=== PATIENT | male | born 1990 | race Caucasian/White ===

== ENCOUNTER 2016-11-17 19:41 | Emergency (ER) | payer OTHER ==
[~2016-11-17] VITALS: Ht 177.8 cm; Wt 63.5 kg
[2016-11-17] MEDS ORDERED: LIDOCAINE WITH 8.4% SOD BICARB 3 ML DISP.SYRIN. IJ ONE (19:45)
[2016-11-17 19:46] VITALS: BP 115/64
--- NOTE | 2016-11-17 19:49 | ED.ADGEN ---
Adult General Chief Complaint Chief Complaint Right arm laceration [facility] HPI Patient is a 26 year old male who presents with right foot pain and right forearm laceration. He states he got upset after drinking and kicked and punched the window of his truck. He presents with right foot pain with a shoe on and addition to a laceration of his right forearm. He states his tetanus shot was updated within the last 5 years. He denies any other injuries. Review of Systems Review of Systems Constitutional: Denies fever or chills [] Eyes: Denies change in visual acuity, redness, or eye pain [] HENT: Denies nasal congestion or sore throat [] Respiratory: Denies cough or shortness of breath [] Cardiovascular: No additional information not addressed in HPI [] GI: Denies abdominal pain, nausea, vomiting, bloody stools or diarrhea [] : Denies dysuria or hematuria [] Musculoskeletal: Denies back pain, positive for right foot pain Integument: Denies rash or skin lesions, positive for laceration of the right forearm Neurologic: Denies headache, focal weakness or sensory changes [] Endocrine: Denies polyuria or polydipsia [] Current Medications Current Medications Current Medications Medications (Trade) Dose Ordered Sig/Halle Start Time Stop Time Status Last Admin Dose Admin Lidocaine/Sodium Bicarbonate (Buffered Lidocaine 1%) 3 ml 1X ONCE 11/17/16 19:45 11/17/16 20:01 DC Allergies Allergies Allergies Coded Allergies Type Severity Reaction Last Updated Verified No Known Drug Allergies 11/17/16 No Physical Exam Physical Exam Constitutional: Well developed, well nourished, no acute distress, non-toxic appearance. [] HENT: Normocephalic, atraumatic, bilateral external ears normal, oropharynx moist, no oral exudates, nose normal. [] Eyes: PERRLA, EOMI, conjunctiva normal, no discharge. [] Neck: Normal range of motion, no tenderness, supple, no stridor. [] Cardiovascular:Heart rate regular rhythm, no murmur [] Lungs & Thorax: Bilateral breath sounds clear to auscultation [] Abdomen: Bowel sounds normal, soft, no tenderness, no masses, no pulsatile masses. [] Skin: Warm, dry, no erythema, no rash, 6 cm laceration of the right anterior forearm Back: No tenderness, no CVA tenderness. [] Extremities: Mild tender palpation of the medial aspect of the right foot, no obvious deformity or ecchymosis noted, no cyanosis, no clubbing, ROM intact, no edema. [] Neurologic: Alert and oriented X 3, normal motor function, normal sensory function, no focal deficits noted. [] Psychologic: Affect normal, judgement normal, mood normal. [] Current Patient Data Vital Signs Vital Signs Date Time Temp Pulse Resp B/P (MAP) Pulse Ox O2 Delivery O2 Flow Rate FiO2 11/17/16 19:46 98.2 108 20 94 Room Air EKG EKG Reviews of the right foot did not show any bony abnormalities, malalignments, fractures, foreign bodies, as interpreted by me. Radiology/Procedures Radiology/Procedures 3 views of the right foot did not show any bony abnormalities, foreign bodies, fractures, soft tissue abnormalities, as interpreted by me. Course & Med Decision Making Course & Med Decision Making Pertinent Labs and Imaging studies reviewed. (See chart for details) X-rays the right foot didn't show any abnormalities. His wound was cleaned and Dermabond together. His tetanus is up-to-date he states he's had it within the last 5 years. Return precautions given his real bowl to the plan and being discharged in stable condition. Final Impression Final Impression Right arm laceration Right foot contusion Problems: Dragon Disclaimer Dragon Disclaimer This electronic medical record was generated, in whole or in part, using a voice recognition dictation system. Laceration Repair Lac Repair Indication: Laceration of right forearm Procedure: The patient was placed in the appropriate position and anesthesia around the right forearm lack did not require any anesthesia. The area was then cleaned with copious water. The laceration was and Dermabond. Total repaired wound length: 6 cm. The patient tolerated the procedure well. Complications: No complications noted. LEIGH ANDERSON MD Nov 17, 2016 19:49
--- NOTE | 2016-11-18 07:50 | RAD ---
Right foot, 3 views, 11/17/2016: History: Foot pain, injury No acute fracture or dislocation is identified. There is mild subcutaneous edema. IMPRESSION: No acute bony abnormality is detected.
== END 2016-11-17 20:33 | disposition home or self-care (01) ==
LOC: ER 19:41
DX: S51.811A Laceration without foreign body of right forearm, initial encounter (principal); S90.31XA Contusion of right foot, initial encounter; W22.8XXA Striking against or struck by other objects, initial encounter; Y93.89 Activity, other specified; Y99.8 Other external cause status; Y92.89 Other specified places as the place of occurrence of the external cause
CPT/HCPCS: 12002; 73630; 99284-25

== ENCOUNTER 2019-11-19 14:57 | Emergency (ER) | payer OTHER ==
[~2019-11-19] VITALS: Ht 175.3 cm; Wt 68.0 kg
[2019-11-19 15:09] VITALS: BP 106/73
--- NOTE | 2019-11-19 15:25 | RAD ---
HAND RIGHT 3V History: Pain. Reason: punched a wall / Spl. Instructions: / History: Technique: 3 views right hand. Comparison: None. Findings: Normal alignment. No fracture. Ulnar hand soft tissue swelling. Impression: 1. No acute osseous abnormality. Electronically signed by: Julio Lazcano DO (11/19/2019 3:22 PM) [facility]
[2019-11-19] MEDS ORDERED: DICL50TA4 PO (15:31)
--- NOTE | 2019-11-19 15:32 | PHYS DOC ---
Past History Past Medical History: No Pertinent History, Other Past Surgical History: No Surgical History Additional Past Surgical Histo: screws in neck Alcohol Use: Occasionally Drug Use: None General Adult EDM: Chief Complaint: HAND PROBLEM HPI: HPI: Patient is a 29-year-old male who presents with complaint of right hand pain and swelling. Patient indicates that he punched a wall a couple of days ago and was seen at [facility] yesterday. Patient states that they did do x-rays but he thinks that his hand is broken. He states that he was told that his hand was just bruised and needed to rest it and put ice on it. He rates pain is moderate and states the pain is worsened with movement. [] Review of Systems: Review of Systems: Constitutional: Denies fever or chills Respiratory: Denies cough or shortness of breath Cardiovascular: Denies chest pain or edema Musculoskeletal: Complains of right hand pain Integument: Denies rash Neurologic: Denies headache, focal weakness or sensory changes Heart Score: Risk Factors: Risk Factors: DM, Current or recent (<one month) smoker, HTN, HLP, family history of CAD, obesity. Risk Scores: Score 0 - 3: 2.5% MACE over next 6 weeks - Discharge Home Score 4 - 6: 20.3% MACE over next 6 weeks - Admit for Clinical Observation Score 7 - 10: 72.7% MACE over next 6 weeks - Early Invasive Strategies Allergies: Allergies: Allergies Coded Allergies Type Severity Reaction Last Updated Verified No Known Drug Allergies 11/17/16 No Physical Exam: PE: Constitutional: Well developed, well nourished, no acute distress, non-toxic appearance. [] Cardiovascular: Regular rate and rhythm [] Lungs & Thorax: Bilateral breath sounds clear to auscultation [] Abdomen: Bowel sounds normal, soft, no tenderness. [] Skin: Warm, dry, no erythema, no rash. [] Extremities: Examination of right hand demonstrates soft tissue swelling and ecchymosis to the dorsal aspect of the hand extending from the third through fifth metacarpal region. There is moderate tenderness to palpation. [] Current Patient Data: Vital Signs: Vital Signs Date Time Temp Pulse Resp B/P (MAP) Pulse Ox O2 Delivery O2 Flow Rate FiO2 11/19/19 15:09 98.3 88 16 106/73 (84) 98 Room Air EKG: EKG: [] Radiology/Procedures: Radiology/Procedures: [] Impressions: PROCEDURE: HAND RIGHT 3V HAND RIGHT 3V History: Pain. Reason: punched a wall / Spl. Instructions: / History: Technique: 3 views right hand. Comparison: None. Findings: Normal alignment. No fracture. Ulnar hand soft tissue swelling. Impression: 1. No acute osseous abnormality. Electronically signed by: Julio Lazcano DO (11/19/2019 3:22 PM) [facility] Course & Med Decision Making: Course & Med Decision Making Pertinent Labs and Imaging studies reviewed. (See chart for details) [] Dragon Disclaimer: Dragon Disclaimer: This electronic medical record was generated, in whole or in part, using a voice recognition dictation system. Departure Departure: Impression: Primary Impression: Contusion of hand, right Qualified Codes: S60.221A - Contusion of right hand, initial encounter Disposition: HOME/RESIDENCE PRIOR TO ADM Condition: STABLE Referrals: PCP,NO (PCP) Patient Instructions: Hand Contusion Scripts Diclofenac Sodium (DICLOFENAC SODIUM) 50 Mg Tablet.dr 1 TAB PO BID PRN for PAIN, #20 TAB Prov: MARIVEL FUNES Jr., DO 11/19/19 Justification of Admission: Justification of Admission: Justification of Admission Dx: No MARIVEL FUNES Jr., DO Nov 19, 2019 15:32
== END 2019-11-19 15:40 | disposition home or self-care (01) ==
LOC: ER 14:57
DX: S60.221A Contusion of right hand, initial encounter (principal); W22.01XA Walked into wall, initial encounter; Y93.89 Activity, other specified; Y92.89 Other specified places as the place of occurrence of the external cause; Y99.8 Other external cause status
CPT/HCPCS: 29125; 73130; 99283

== ENCOUNTER 2021-02-05 15:40 | Emergency (ER) | payer OTHER ==
[~2021-02-05] VITALS: Ht 175.3 cm; Wt 68.0 kg
[~2021-02-05 15:40] MED LIST: DICL50TA4 PO
[2021-02-05] MEDS ORDERED: LIDOCAINE 1% Multi-Dose 20 ML VIAL. IJ ONE (19:00)
[2021-02-05] MEDS ORDERED: CEPH500T PO (19:43)
--- NOTE | 2021-02-05 19:49 | PHYS DOC ---
Past History Past Medical History: No Pertinent History, Other Past Surgical History: No Surgical History Additional Past Surgical Histo: screws in neck Alcohol Use: None Drug Use: None General Adult EDM: Chief Complaint: LACERATION/AVULSION HPI: HPI: Patient is a 30-year-old male being seen in the ER for a laceration to his right thumb. Patient reports that he was in O2 sensor from a car when he cut his hand on a piece of metal. Patient denies any decreased sensation or decreased range of motion to his finger. Patient reports that he has had a tetanus shot in the last 2 years. Patient denies any current pain. Review of Systems: Review of Systems: 14 body systems of the review of systems have been reviewed. See HPI for pertinent positive and negative responses, otherwise all other systems are negative, nonpertinent or noncontributory Current Medications: Current Meds: Current Medications Medications (Trade) Dose Ordered Sig/Halle Start Time Stop Time Status Last Admin Dose Admin Lidocaine HCl 20 ml 1X ONCE 02/05/21 19:00 02/05/21 19:12 DC Allergies: Allergies: Allergies Coded Allergies Type Severity Reaction Last Updated Verified No Known Drug Allergies 11/17/16 No Physical Exam: PE: Constitutional: Well developed, well nourished, no acute distress, non-toxic appearance. [] HENT: Normocephalic, atraumatic Eyes: PERRL, EOMI, conjunctiva normal, no discharge. [] Neck: Normal range of motion, no tenderness, supple, no stridor. [] Cardiovascular: Normal peripheral perfusion Lungs & Thorax: Normal work of breathing, no tachypnea Skin: Warm, dry, no erythema, no rash. [] Back: Normal range of motion Extremities: No tenderness, no cyanosis, no clubbing, ROM intact, no edema. [] Right thumb: 2 cm laceration noted to the dorsal aspect of patient's right thumb, neuro intact, full range of motion, no tendon involvement, no visible foreign bodies. Neurologic: Alert and oriented X 3, normal motor function, normal sensory function, no focal deficits noted. [] Psychologic: Affect normal, judgement normal, mood normal. [] Current Patient Data: Vital Signs: Vital Signs Date Time Temp Pulse Resp B/P (MAP) Pulse Ox O2 Delivery O2 Flow Rate FiO2 02/05/21 16:17 98.0 68 16 131/81 98 Room Air EKG: EKG: [] Radiology/Procedures: Radiology/Procedures: [] Heart Score: C/O Chest Pain: No Risk Factors: Risk Factors: DM, Current or recent (<one month) smoker, HTN, HLP, family history of CAD, obesity. Risk Scores: Score 0 - 3: 2.5% MACE over next 6 weeks - Discharge Home Score 4 - 6: 20.3% MACE over next 6 weeks - Admit for Clinical Observation Score 7 - 10: 72.7% MACE over next 6 weeks - Early Invasive Strategies Course & Med Decision Making: Course & Med Decision Making Pertinent Labs and Imaging studies reviewed. (See chart for details) Patient is a 30-year-old male being seen for a laceration to his right thumb. Patient reported that he does not believe that there was a foreign body in his thumb wound was cleansed in the ER with saline and chlorhexidine. It did not appear that there was a foreign body or tendon involvement. Approximately 40 cc of saline irrigated the wound. Laceration repaired with sutures. Patient tolerated procedure. Neuro intact pre and post procedure. Range of motion intact pre and post procedure. Patient placed on antibiotic due to the appearance of the wound. Patient educated on laceration care and suture removal. I discussed with patient all findings and diagnostic testing as well as the need to follow-up with PCP for further evaluation and treatment or return to the ER if any new or worsening symptoms. Strict return precautions were also discussed at length. Patient voiced understanding and agreement with the plan. Patient is hemodynamically stable at the time of disposition. Aleta Disclaimer: Aleta Disclaimer: This electronic medical record was generated, in whole or in part, using a voice recognition dictation system. Laceration Repair Lac Repair Time: 1919 Confirmed: Patient, procedure, site, and site correct Consent: Patient has given verbal consent Laceration location: Right dorsal thumb Shape: Linear Depth: Superficial Details: Clean with no foreign material Neurovascular, tendon exam: Intact Anesthesia: 1% lidocaine Preparation: Sterile field established Irrigation: Wound irrigated with sterile saline Debridement: Chlorhexidine Skin closure: Simple interrupted sutures placed Size of suture: 5-0 Ethilon Number of sutures: 4 Complexity: Single layer Post procedure exam: Circulation, motor, sensory exam intact, bleeding controlled. Complications: None Patient tolerated: Well Performed by: self Total time: 25 minutes Departure Departure: Impression: Primary Impression: Laceration of finger Qualified Codes: S61.011A - Laceration without foreign body of right thumb without damage to nail, initial encounter Disposition: HOME / SELF CARE / HOMELESS Condition: GOOD Referrals: PCP,DAMARIS (PCP) Patient Instructions: Laceration Care, Adult Additional Instructions: You were seen in the ER for a laceration to your right thumb. The wound was cleansed and repaired with sutures. Please keep the laceration clean and dry. You can clean it with mild soap and warm water. Do not submerge your hand in any water for 48 hours. Apply bacitracin/Polysporin ointment and keep a bandage on your finger. Please monitor for signs of infection including redness, warmth, swelling, drainage. You will need to have the sutures removed in 7 to 10 days. You can go to your primary care provider or you can return to the ER. If you develop any of the signs of infection, decreased sensation in your finger, decreased range of motion, high fevers refractory to treatment or increased pain please return to the ER. EMERGENCY DEPARTMENT GENERAL DISCHARGE INSTRUCTIONS Thank you for coming to [facility] (ED) today and trusting us with you care. We trust that you had a positivie experience in our Emergency Department. If you wish to speak to the department management, you may call the director at . YOUR FOLLOW UP INSTRUCTIONS ARE FOLLOWS: 1. Do you have a private Doctor? If you do not have a private doctor, please ask for a resource list of physicians or clinics that may be able to assist you with follow up care. 2. The Emergency Physician has interpreted your x-rays. The X-Ray specialist will also review them. If there is a change in the findings, you will be notified in 48 hours when at all possible. 3. A lab test or culture has been done, your results will be reviewed and you will be notified if you need a change in treatment. ADDITIONAL INSTRUCTIONS AND INFORMATION: 1. Your care today has been supervised by a physician who is specially trained in emergency care. Many problems require more than one evaluation for a complete diagnosis and treatment. We recommend that you schedule your follow up appointment as recommended to ensure complete treatment of you illness or injury. If you are unable to obtain follow up care and continue to have a problem, or if your condition worsens, we recommend that you return to the ED. 2. We are not able to safely determine your condition over the phone nor are we able to give sound medical advice over the phone. For these safety reasons, if you call for medical advice we will ask you to come to the ED for further evaluation. 3. If you have any questions regarding these discharge instructions please call the ED at [phone]. SAFETY INFORMATION: In the interest of safety, wellness, and injury prevention; we encourage you to wear your sealbelt, if you smoke; quite smoking, and we encourage family to use a protective helmet for bicycling and other sporting events that present an increased risk for head injury. IF YOUR SYMPTOMS WORSEN OR NEW SYMPTOMS DEVELOP, OR YOU HAVE CONCERNS ABOUT YOUR CONDITION; OR IF YOUR CONDITION WORSENS WHILE YOU ARE WAITING FOR YOUR FOLLOW UP APPOINTMENT; EITHER CONTACT YOUR PRIMARY CARE DOCTOR, THE PHYSICIAN WHOSE NAME AND NUMBER YOU WERE GIVEN, OR RETURN TO THE ED IMMEDIATELY. Scripts Cephalexin (CEPHALEXIN) 500 Mg Tablet 1 TAB PO QID for INFECTION for 7 Days, #28 TAB 0 Refills Prov: JAYLIN GARCIA APRN 02/05/21 JAYLIN GARCIA APRN Feb 05, 2021 19:49
[2021-02-05 19:53] VITALS: BP 124/76
== END 2021-02-05 19:53 | disposition home or self-care (01) ==
LOC: ER 15:40
DX: S61.011A Laceration without foreign body of right thumb without damage to nail, initial encounter (principal); W26.8XXA Contact with other sharp object(s), not elsewhere classified, initial encounter; Y93.89 Activity, other specified; Y92.89 Other specified places as the place of occurrence of the external cause; Y99.8 Other external cause status
CPT/HCPCS: 12001; 99283